=== PATIENT | male | born 1980 ===

== ENCOUNTER 2017-01-12 16:36 | Emergency (ER) | payer OTHER ==
[2017-01-12] MEDS ORDERED: Tetan/Diph/Pertus SYR(Tdap)* 0.5 ML SYR(BOOSTRIX) use SYR IM ONE (18:32)
[2017-01-12] MEDS ORDERED: Cephalexin CAP* 500 MG PO ONE (18:32)
--- NOTE | 2017-01-12 18:35 | UC ---
Skin Complaint HPI - HPI Summary HPI Summary: WAS WORKING IN THE [employer] TODAY. 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 IS NOT UP TO DATE TETANUS. - History of Current Complaint Chief Complaint: [facility]kin Time Seen by Provider: 01/12/17 18:02 Stated Complaint: TETNAS BOOSTER DUE TO INJURY Hx Obtained From: Patient, Family/Payroll And Benefits Specialist - GRANDMA Onset/Duration: Sudden Onset, Lasting Hours, Still Present Timing: Constant Onset Severity: Moderate Current Severity: Moderate Pain Intensity: 0 Pain Scale Used: 0-10 Numeric Location: Hand (Left) Aggravating: Touch Alleviating: Nothing Associated Signs & Symptoms: Positive: Negative - Allergy/Home Medications Allergies/Adverse Reactions: Allergies Allergy/AdvReac Type Severity Reaction Status Date / Time No Known Allergies Allergy Verified 01/12/17 16:49 Review of Systems Constitutional: Negative Skin: Other - PUNCTURE WOUND LEFT HAND Respiratory: Negative Cardiovascular: Negative Gastrointestinal: Negative All Other Systems Reviewed And Are Negative: Yes PMH/Surg Hx/FS Hx/Imm Hx Previously Healthy: Yes - Surgical History Surgical History: None - Family History Known Family History: Negative: Hypertension - Social History Alcohol Use: Occasionally Substance Use Type: None Smoking Status (MU): Never Smoked Tobacco Physical Exam Triage Information Reviewed: Yes Appearance: Well-Appearing, No Pain Distress, Well-Nourished Vital Signs: Initial Vital Signs Temp 98.6 F 01/12/17 16:46 Pulse 73 01/12/17 16:46 Resp 16 01/12/17 16:46 BP 138/85 01/12/17 16:46 Pulse Ox 98 01/12/17 16:46 Vital Signs Reviewed: Yes Eyes: Positive: Conjunctiva Clear ENT: Positive: Hearing grossly normal Neck: Positive: Supple Respiratory: Positive: No respiratory distress, No accessory muscle use Cardiovascular: Positive: Pulses Normal Abdomen Description: Positive: Soft Musculoskeletal: Positive: No Edema Neurological: Positive: Alert Psychological: Positive: Normal Response To Family, Age Appropriate Behavior Skin: Positive: Other - PUNCTURE WOUND LEFT HAND OVERLYING THENAR EMINENCE. MILDLY TENDER. Course/Dx - Diagnoses Provider Diagnoses: 1. PUNCTURE WOUND LEFT HAND. 2. TDAP BOOSTER Discharge - Discharge Plan Condition: Stable Disposition: HOME Prescriptions: Cephalexin CAP* [Keflex 500 CAP*] 1,000 mg PO BID #26 cap Patient Education Materials: Puncture Wound (ED) Referrals: No Primary Care Phys,NOPCP [Primary Care Provider] - Additional Instructions: KEFLEX FOR PROPHYLAXIS AGAINST INFECTION. SEEK FOLLOW-UP IF YOU DEVELOP SPREADING REDNESS OF THE SKIN, PURULENT DRAINAGE, FEVER, INCREASED PAIN OR ANY OTHER CONCERNING SYMPTOMS. CALL THE NUMBER BELOW FOR ASSISTANCE IN ESTABLISHING WITH A PCP An additional resource available to assist in finding the appropriate physician for your health care needs is the [facility] ([facility]). You may contact them by calling [phone]. TETANUS IMMUNIZATION GIVEN (TDAP): You have been given an immunization against tetanus. Please record this in your records. In general, a booster is needed only once every 10 years. The tetanus shot protects against tetanus or "lockjaw," which is a complication of certain wound infections (the tetanus shot cannot protect against the actual infection). The immunization site may become warm and red due to local reaction. If this occurs, apply warm compresses and take aspirin or ibuprofen to reduce inflammation and discomfort. Return for evaluation if the reaction becomes severe.
== END 2017-01-12 18:52 | disposition home or self-care (01) ==
LOC: UCEAST 16:36
DX: S61.432A Puncture wound without foreign body of left hand, initial encounter (principal); W30.89XA Contact with other specified agricultural machinery, initial encounter; Y93.H2 Activity, gardening and landscaping; Y92.9 Unspecified place or not applicable; Z23 Encounter for immunization
CPT/HCPCS: 90471; 90715; 99202; A9270-GY; G0463